=== PATIENT | male | born 1965 | race Caucasian/White ===

== ENCOUNTER 2025-06-25 15:05 | Inpatient (IN) | payer MEDICAID ==
[~2025-06-25] VITALS: Ht 185.4 cm; Wt 60.0 kg
[2025-06-25] VITALS (11 sets, daily range): BP systolic 85–132; BP diastolic 51–82; PULSE 58–76; RESP 10–17; TEMP 97.5–98; O2SAT 100
[2025-06-25 15:30] LABS: MEAN PLATELET VOLUME 8.5 FL (7.4-10.4); RED CELL DISTRIBUTION WIDTH 24.2 % (11.5-14.5)
[2025-06-25 15:42] LABS: INR 1.1 INR
[2025-06-25 15:55] LABS: CREATININE 0.92 MG/DL (0.60-1.10); TOTAL CARBON DIOXIDE 30.1 MMOL/L (24-32); eCRCL 74 ML/MIN; eGFR 84 ML/MIN
--- NOTE | 2025-06-25 16:23 | ELECTROCARDIOGRAPH REPORT ---
[facility] Test Date: 2025-06-25 Test Time: 15:10:45 Pat Name: JENA KEYES Department: EMERGENCY ROOM Room: Gender: M [employer] Technical Advisor: : [id number] Requested By: VALARIE SANCHEZ Order Number: [id number] Reading MD: Measurements Intervals [place] Rate: 74 P: 61 AR: 150 QRS: 42 QRSD: 90 T: 61 QT: 414 QTc: 460 Interpretive Statements Sinus rhythm RSR' in V1 or V2, right VCD or RVH Please click the below link to view image of tracing.
--- NOTE | 2025-06-25 16:47 | RADIOLOGY REPORT ---
CHEST RADIOGRAPH Indication: anemia Technique: DI CHEST,SINGLE VIEW Comparison: None FINDINGS: 1 The cardiac silhouette is unremarkable. The lungs demonstrate bilateral interstitial airspace opacities. The pulmonary vasculature is unremarkable. There is no pleural effusion. There is no pneumothorax. Aortic atherosclerotic disease. IMPRESSION: Interstitial airspace opacities which could represent sequela of pulmonary edema, atypical infection, chronic lung changes/disease.
[2025-06-25 16:55] LABS: PLATELET ESTIMATE NORMAL
[2025-06-25] MEDS ORDERED: iohexol 300mg/ml 100ml inj. ONE (16:57)
[2025-06-25] MEDS ORDERED: mag hydrox/Alum hydrox/simeth 30ml oral suspension PO PRN (17:40)
[2025-06-25] MEDS ORDERED: magnesium sulf-water 2g/50mL 50 ML IV PRN (17:40)
[2025-06-25] MEDS ORDERED: magnesium Cl slow-release 64mg tablet PO PRN (17:40)
[2025-06-25] MEDS ORDERED: potassium Cl 20 mEq SR tablet PO PRN ×2 (17:40)
[2025-06-25] MEDS ORDERED: HYDROcodone/acetaminophen 5mg/325mg tablet PO PRN (17:40)
[2025-06-25] MEDS ORDERED: acetaminophen 650mg rectal suppository RC PRN (17:40)
[2025-06-25] MEDS ORDERED: bisacodyl 10mg suppository rectal RC PRN (17:40)
[2025-06-25] MEDS ORDERED: potassium Cl 40MEQ/1/2NS 520ml 520 ML IV PRN (17:40)
[2025-06-25] MEDS ORDERED: magnesium sulf-water 4G/100mL 100 ML IV PRN (17:40)
[2025-06-25] MEDS ORDERED: HYDROcodone/acetaminophen 10/325mg tab PO PRN (17:40)
[2025-06-25] MEDS ORDERED: ondansetron 4mg rapidly disintigrating tab PO PRN (17:40)
[2025-06-25] MEDS ORDERED: magnesium hydroxide 30ml (MOM) UD suspension PO PRN (17:40)
[2025-06-25] MEDS ORDERED: ondansetron/PF 4mg/2ml inj IV PRN (17:40)
[2025-06-25] MEDS ORDERED: morphine 4 MG/ML inj SYRINge IV PRN (17:40)
--- NOTE | 2025-06-25 17:50 | HISTORY AND PHYSICAL ---
History & Physical Providers to CC ~ chief complaint, abnormal lab, low hemoglobin History of Present Illness Reason for Admit\Complaint: As above History of Present Illness This is a 60 years old white male with history of chronic tobacco abuse including currently, malnutrition BMI 17, presented today to emergency department sent by [facility], because abnormal lab hemoglobin 4.5, The patient denies any blood per rectum or vomiting blood and presented there for weakness and generalized malaise. Denies fever, N/V/D.in addition patient complaint on generalized weakness, intermittently confused, and hypoxic 2 L oxygen nasal cannula, in emergency department he was evaluated by physician was diagnosed with severe anemia, etiology unknown, a right-sided pneumonia, respiratory failure, malnutrition, and decision was made to admit patient for further evaluation and treatment, no additional complaint or concern. Allergies: Coded Allergies: No Known Allergies (Unverified , 10/06/16) Active prescriptions I reviewed reconciled Home Medications Pending Past Medical History Past Medical History As in HPI Past Surgical History Surgical History Comment As in HPI Past Social History Social History Comment Deny illicit drug abuse , alcohol use live with the family good social support, positive for chronic tobacco abuse including currently Health Maintenance Health Maintenance Noncontributory ROS ROS Constitutional : no fever , no chills, or weakness. No diaphoresis. Allergic/Immunologic, no lymphadenopathy, no hives, no skin eruptions. Eyes, no recent visual changes, no eye pain, no photophobia. Ears, nose, mouth, throat, no sore throat, no nosebleed, no ear pain. Cardiovascular, no palpitations, skipped beats, chest pain, no peripheral edema, Respiratory, no dyspnea, orthopnea, cough, hemoptysis, chest wall pain. Gastrointestinal, no abdominal pain, nausea, vomiting, constipation or diarrhea. : no dysuria, hematuria, pelvic pain, urethral d/c. Endocrine, no polyuria, polydipsia, recent unintentional weight gain or loss. Hematologic/Lymphatic, no petechiae, no enlarged lymph nodes, no bone pain. Integumentary, no rash, no skin lesions, Musculoskeletal, no muscle aches, or pain, no muscle cramps, no recent change in gait Neurological, no dizziness, no headache, no syncope, no paresthesia. Psychiatric, no delusions, visual hallucinations, or hearing hallucinations. ROS - in rest is as in HPI. Exam Vitals: Vital Signs Date Time Temp Pulse Resp B/P (MAP) Pulse Ox O2 Delivery O2 Flow Rate FiO2 06/25/25 17:11 97.8 67 14 104/58 06/25/25 15:29 100 2.0 Vital signs, stable ,afebrile. Pulse Oximetry reflects adequate oxygenation on 2 L oxygen nasal cannula. BMI is seventeen, weight 60 kg General: well developed, well nourished. Awake , alert, and oriented x4, resting comfortably in the bed, in no acute distress . Skin: Warm, dry, no pallor, no rash or petechiae. HEENT: Atraumatic, normocephalic, EOMI, anicteric sclera B; pink conjunctiva; PERRLA, normal oropharynx, moist oral and nasal mucosa. Tympanic membrane , nose , throat clear. Neck: Trachea midline. Supple, full range of motion, no JVD, bruit , hepatojugular reflex , lymphadenopathy or masses, or other lesions Cardiac: Regular rhythm, regular rate no murmurs, rubs, or gallops. Normal S1 and S2, no S3 noticed. PMI is normal. Respiratory: Equal breath sounds bilaterally, no tachypnea; lungs clear to auscultation bilaterally, no wheezing ,rub or rales, or crackles. Chest wall is symmetric and without deformity. No signs of trauma. Chest wall is nontender. No signs of respiratory distress. Resonance is normal upon percussion bilaterally. Gastrointestinal: Abdomen symmetric, non-distended, soft, non-tender, normal bowel sounds x4 quadrant, normoactive, no hepatosplenomegaly , no masses , no bruit, no flank pain bilaterally. No voluntary guarding, rebound, or rigidity. No tenderness to percussion. No pulsatile masses. Equal femoral pulses. No Nunn's sign or McBurney point tenderness. Back; no CVA tenderness bilaterally, no deformities. Neck and back are without deformity as well. No tenderness noted on palpation of the spinous processes. Spinous processes are midline. Cervical, thoracic, and lumbar paraspinal muscles are not tender and are without spasm. : normal external genitalia, without lesions, swelling, masses or tenderness. Musculoskeletal: Extremities, normal range of motion, non-tender, muscle strength 5/5 x 4. Negative Homans signs bilaterally on lower extremity. Distal pulses full symmetrical, no clubbing, cyanosis , edema. Neurological: Speech is clear, alert, and oriented x 4. No motor or sensory deficit, deep tendon reflexes normal, cerebellar intact. Cranial nerves II-XII intact. Psych: Alert and or appropriate, normal affect. Vascular: Good distal pulses, which are equal x4; capillary refill less than 2 seconds. Lymphatic, no lymphadenopathy. Diagnostic Data Last Recorded Lab Results: 06/25/25 1514 06/25/25 1514 Diagnostic Data: Laboratory Tests Test 06/25/25 15:14 Prothrombin Time 10.8 SECONDS (9.0-12.0) INR International Normalized Ratio 1.1 INR Coagulation Comments Advance Care Planning Advanced Care plannin - 30 Minutes Additional Plan Assessment Acute anemia, hemoglobin 4.5 Generalized weakness Chronic tobacco Abuse including currently Altered level of consciousness Right-sided pneumonia acute mixed yoshi Gram-positive Gram-negative, community- acquired Acute respiratory failure secondary to hypoxia Malnutrition BMI 17 Hypovolemia Hypoalbuminemia Plan Blood transfusion, initiated in ER IV fluids keep patient well hydrated euvolemic IV antibiotics, SVN DuoNeb incentive spirometry Additional lab work pending Nutrition consult CT of the chest pending CT of the head pending Consulted for 5 minutes to stop using tobacco patient agrees started to nicotine patch I reconciled home medications DVT gastropathy prophylaxis addressed Sepsis Screening Reassessment Date: Jun 25, 2025 Date of Service: Jun 25, 2025 Billing Provider: KAYLI REHMAN MD Common Visit Codes: [id number] INP/OBS CARE (HIGH) Secondary Visit Codes: [id number] CHNG SMOKING 3-10M, [id number] CARE PLAN 30 MINUTES KAYLI REHMAN MD Jun 25, 2025 17:49
[2025-06-25] MEDS: normal saline 1000ml 1,000 ML IV SCH (18:04)
[2025-06-25 18:10] LABS: PHOSPHORUS 4.7 MG/DL (2.3-4.5); PRO BRAIN NATRIURETIC PEPTIDE 1968 PG/ML (0-125)
--- NOTE | 2025-06-25 18:27 | Physician Documentation ---
History of Present Illness ~ Chief Complaint: Hypotension Stated Complaint: ABNORMAL LABS Time Seen by MD: 15:09 OK to notify your PCP?: Yes Mode of Arrival: EMS HPI 60 year old male sent from [facility] via EMS where he was diagnosed with a significant anemia. The patient denies any blood per rectum or vomiting blood and presented there for weakness and generalized malaise. Denies fever, N/V/D. Medication Reconciliation Allergies: Coded Allergies: No Known Allergies (Unverified , 10/06/16) Past Medical History Smoking Status: Unknown if ever smoked Review of Systems All Other Systems at this time: Reviewed and Negative Physical Exam Vital Signs: RN Vital Signs have been reviewed: Yes, Temperature: 97.8, Source: Oral, Heart Rate: 61, Respiratory Rate: 12, BP: 113/64, Pulse Oximetry: 100, Weight: 60.000 Oxygen Flow Rate: 2.0 Physical Exam HEENT: PERRL, moist oral mucosa, EOMI Pulmonary: No respiratory distress TAB Cardiac: RRR, no murmur, rub or gallop GI: nondistended, soft, nontender, no guarding, no rebound MSK: no deformity Skin: pale Neuro: alert, extremely hard of hearing Psych: normal affect Progress Results/Orders Results/Orders Orders - VALARIE SANCHEZ MD Cbc/Diff (06/25/25 15:09) Urinalysis, Cult If Indicated (06/25/25 15:09) Type And Screen (06/25/25 15:09) Lrpc - No Active Bleeding (06/25/25 15:09) Hemocult Set Up (06/25/25 ) Occult Bld Stool (06/25/25 15:58) Chest,Single View (06/25/25 16:20) Lrpc - Active Bleeding (06/25/25 15:14) Pathology Review (06/25/25 15:14) Page Hospitalist (06/25/25 ) Ct Chest Abdomen Pelvis Iv Con (06/25/25 16:52) Completed Orders - VALARIE SANCHEZ MD CMP (06/25/25 15:09) Lacticsepsis (06/25/25 15:09) Pt Inr (06/25/25 15:09) Chest,Single View (06/25/25 16:20) Electrocardiogram (06/25/25 15:10) Iohexol 300mg/Ml 100ml Inj. (Omnipaque-3 (06/25/25 16:57) Hgb A1c (06/25/25 15:14) MG (06/25/25 15:14) PBNP (06/25/25 15:14) PHOS (06/25/25 15:14) CK (06/25/25 15:14) Lipase (06/25/25 15:14) TSH (06/25/25 15:14) Medications Received in ER Medications (Trade) Dose Ordered Sig/Luis Alberto Route PRN Reason Start Time Stop Time Status Last Admin Dose Admin Sodium Chloride 1,000 ml @ 100 mls/hr Q10H IV 06/25/25 17:40 06/25/25 18:04 100 MLS/HR Vital Signs 06/25/25 06/25/25 06/25/25 06/25/25 15:08 15:16 15:22 15:29 Pulse 75 74 71 Resp 11 11 10 13 B/P (MAP) 89/50 96/54 (68) 93/56 (68) Pulse Ox 92 93 100 O2 Flow Rate 0 2.0 2.0 06/25/25 06/25/25 06/25/25 16:50 16:55 17:11 Temp 98.0 98.0 97.8 Pulse 70 69 67 Resp 13 13 14 B/P (MAP) 108/63 95/60 104/58 Laboratory Tests Test 06/25/25 15:14 White Blood Count 10.8 Red Blood Count 2.75 L Hemoglobin 4.5 *L Hematocrit 16.3 *L Mean Corpuscular Volume 59.2 L Mean Corpuscular Hemoglobin 16.4 L Mean Corpuscular Hemoglobin Concent 27.7 L Red Cell Distribution Width 24.2 H Platelet Count 405 Mean Platelet Volume 8.5 Neutrophils (%) (Auto) 80.5 H Lymphocytes (%) (Auto) 9.1 L Monocytes (%) (Auto) 7.3 Eosinophils (%) (Auto) 1.9 Basophils (%) (Auto) 1.2 H Neutrophils # (Auto) 8.7 H Lymphocytes # (Auto) 1.0 L Monocytes # (Auto) 0.8 Eosinophils # (Auto) 0.2 Basophils # (Auto) 0.1 CBC Comment Platelet Estimate Normal Red Blood Cell Morphology Perf Hypochromasia 2+ Basophilic Stippling Anisocytosis 3+ Microcytosis 3+ Tear Drop Cells Few Prothrombin Time 10.8 INR International Normalized Ratio 1.1 Coagulation Comments Sodium Level 139 Potassium Level 4.0 Chloride Level 104 Carbon Dioxide Level 30.1 Anion Gap 5 L Blood Urea Nitrogen 18 Creatinine 0.92 Estimated GFR/1.73 m2 84 BUN/Creatinine Ratio 19.6 Glucose Level 96 Hemoglobin A1c 4.9 Lactic Acid Level 1.3 Calcium Level 7.7 L Phosphorus Level 4.7 H Magnesium Level 2.0 Total Bilirubin 0.2 Aspartate Amino Transf (AST/SGOT) 11 Alanine Aminotransferase (ALT/SGPT) < 6 L Alkaline Phosphatase 147 H Total Creatine Kinase 9 L Pro-B-Type Natriuretic Peptide 1968 H Total Protein 6.1 L Albumin 2.3 L Globulin 3.8 Albumin/Globulin Ratio 0.6 L Lipase 19 Thyroid Stimulating Hormone (TSH) 2.13 Chemistry Comments Medical Decision Making Findings 60 year old male with severe anemia, confirmed on local testing with HgB <5. Typed and screened/crossed, transfusion started. Care transferred to hospitalist for continued workup. hemoccult pending. Differential Dx:Considerations: Include: anemia, dehydration, dysrhythmia, electrolyte imbalance, encephalopathy, hypotension, hypovolemia, myasathenia gravis, myocardial infarction, respiratory failure Departure Disposition: 09 ADMITTED INPATIENT Admitted to Inpatient Unit: to hospitalist Admission Level of Care: Med/Surg Impression: Primary Impression: Anemia Condition: Stable Referrals: NO PRIMARY CARE PROVIDER (PCP) Education Educated: Patient Educated regarding: diagnosis, treatment, prognosis, need for follow up Signature Scribe Signature: . Attestation: . VALARIE SANCHEZ MD Jun 25, 2025 18:27
[2025-06-25 19:45] LABS: LACTATE DEHYDROGENASE 165 U/L (85-227)
--- NOTE | 2025-06-25 19:52 | RADIOLOGY REPORT ---
EXAM: CT CT HEAD INDICATION: ALOC TECHNIQUE: CT images of the head were obtained without administration of IV contrast. CT scans at this facility use dose modulation, iterative reconstruction, and/or weight based dosing when appropriate to reduce radiation dose to as low as reasonably achievable. COMPARISON: None FINDINGS: PARENCHYMA: No acute hemorrhage. There is no mass effect, midline shift, or herniation. There is preservation of the nam white differentiation. VENTRICLES: No hydrocephalus. EXTRA-AXIAL SPACES: No extra-axial fluid collections. OTHER: The bony structures are intact. Fluid opacification of bilateral mastoid air cells correlate for mastoiditis. Degenerative change of bilateral temporomandibular joints. IMPRESSION: 1. No CT evidence of an acute intracranial abnormality. 2. Fluid opacification of bilateral mastoid air cells correlate for mastoiditis.
[2025-06-25] MEDS: docusate sod 100mg capsule PO SCH (20:00)
[2025-06-25] MEDS: K and/or MAG REPLACEMENT MC SCH (20:00)
--- NOTE | 2025-06-25 20:03 | RADIOLOGY REPORT ---
Exam: CT CT CHEST ABDOMEN PELVIS IV CON History: anemia LUNG OPACITIES Comparison Study: None Technique: Multidetector spiral CT of the chest, abdomen and pelvis was performed from lower neck to pubic symphysis. Intravenous contrast was administered during this examination. Portal venous imaging was obtained. Axial, coronal and sagittal multiplanar reformats were performed by the technologist on a separate workstation. Radiation Dose : 1. Chest/Abdomen/Pelvis: CTDIvol 14.7 mGy, DLP 1175 mGy*cm. Findings: Lower neck: Normal thyroid. Lungs: Multifocal nodular densities throughout both lungs suggestive of multifocal pneumonia. Heart/Vascular Structures: Normal heart size. No pericardial effusion. Lymph Nodes: No adenopathy Pleura: No pleural effusion or significant pneumothorax. Liver: Hepatomegaly measuring up to 21 cm. Diffuse steatosis. Gallbladder and Biliary Tree: Cholelithiasis noted without secondary findings of cholecystitis or biliary obstruction. Spleen: Unremarkable Pancreas: The pancreas is normal in appearance without focal lesions or abnormal enhancement. Adrenal Glands: Unremarkable Kidneys: Kidneys demonstrate normal symmetric enhancement without focal lesions, calculi or hydronephrosis. Bladder: Unremarkable Bowel: The stomach is grossly normal in appearance. Scattered colonic diverticula. Mild concentric wall thickening of the distal colon may reflect underdistention versus mild colitis. The appendix is not visualized; however, no secondary findings of acute appendicitis identified. Ascites: Absent Lymphadenopathy: No mesenteric, retroperitoneal or periportal lymphadenopathy. Abdominal Wall and Mesentery: Unremarkable. Vasculature: The visualized abdominal aorta is normal in size and caliber. Abdominal and pelvic vessels demonstrate normal enhancement. Pelvic Organs: Unremarkable Musculoskeletal: No aggressive focal bony lesions, acute fractures or dislocation. Posterior surgical fixation hardware at L5-S1. IMPRESSION: 1. Multifocal nodular densities throughout both lungs suggestive of multifocal pneumonia. Recommend follow-up noncontrast chest CT in 2-4 weeks to evaluate for stability. 2. Hepatomegaly with diffuse steatosis. 3. Cholelithiasis without secondary findings of cholecystitis or biliary obstruction. 4. Scattered colonic diverticula. 5. Mild concentric wall thickening of the distal colon may reflect underdistention versus mild colitis.
[2025-06-25 21:12] LABS: HIV ANTIBODY 1&2 RAPID NON-REACTIVE (Neg)
[2025-06-25] MEDS ORDERED: ALBU18HF2 IH (22:10)
[2025-06-25] MEDS ORDERED: HYDR-3972 PO (22:10)
[2025-06-25] MEDS ORDERED: OMEP20TA23 PO (22:10)
[2025-06-25] MEDS ORDERED: MORP30TA6 PO (22:10)
[2025-06-25] MEDS ORDERED: LORA10TA7 PO (22:10)
[2025-06-25] MEDS ORDERED: MONT-47 PO (22:11)
[2025-06-25] MEDS ORDERED: UMEC1BLS IH (22:13)
[2025-06-25 22:53] LABS: LEUKOCYTE ESTERASE ,URINE NEGATIVE (Neg); NITRITES, URINE NEGATIVE (Neg); OCCULT BLOOD,URINE NEGATIVE (Neg); UA COLLECTION TYPE URINAL
[2025-06-25 23:00] LABS: URINE AMPHETAMINE SCREEN NEGATIVE (Neg); URINE BARBITUATE SCREEN NEGATIVE (Neg); URINE BENZODIAZEPINES SCREEN NEGATIVE (Neg); URINE CANNABINOID SCREEN POSITIVE (Neg); URINE COCAINE SCREEN NEGATIVE (Neg); URINE METHADONE SCREEN NEGATIVE (Neg); URINE OPIATE SCREEN POSITIVE (Neg); URINE PHENCYCLIDINE SCREEN NEGATIVE (Neg)
[2025-06-26] VITALS (9 sets, daily range): BP systolic 93–103; BP diastolic 45–52; PULSE 62–94; RESP 12–20; TEMP 97.2–98.1; O2SAT 88–100
[2025-06-26 00:26] LABS: MEAN PLATELET VOLUME 8.6 FL (7.4-10.4); RED CELL DISTRIBUTION WIDTH 30.2 % (11.5-14.5)
[2025-06-26] MEDS: nicotine 14mg patch - 24hr TD SCH (08:00)
[2025-06-26] MEDS ORDERED: pantoprazole 40MG/NS 100ML BAG 100 ML IV SCH (08:00)
[2025-06-26 09:28] LABS: MEAN PLATELET VOLUME 8.3 FL (7.4-10.4); RED CELL DISTRIBUTION WIDTH 29.6 % (11.5-14.5)
[2025-06-26 09:34] LABS: PLATELET ESTIMATE NORMAL
[2025-06-26 09:46] LABS: ELLIPTOCYTES FEW
[2025-06-26 09:50] LABS: CREATININE 0.65 MG/DL (0.60-1.10); TOTAL CARBON DIOXIDE 29.7 MMOL/L (24-32); eCRCL 105 ML/MIN; eGFR > 90 ML/MIN
[2025-06-26 09:51] LABS: CHOL/HDL RATIO 3.1 (0.00-4.99); LDL CHOLESTEROL 64 MG/DL (50-100)
[2025-06-26] MEDS: CefTRIAXone/D5W-Rocephin 1gm 50 ML IV SCH (10:31)
[2025-06-26] MEDS: azithromycin/NS 500mg/250ml 250 ML IV SCH (10:31)
[2025-06-26] MEDS: ipratropium/albuterol 3ml nebule NEB PRN (10:35)
--- NOTE | 2025-06-26 18:54 | PROGRESS NOTE ---
Daily Progress Note Providers to CC ~ feels better today, resting comfortably in the bed Central Line/PICC still needed: No Rivas-Non Protocol Rivas Indications Met/Not Met: F/C Indications Not Met Antibiotic Timeout Antibiotic Ordered?: Yes MRSA Education MRSA Education Provided to pt: Yes Subjective As above Objective Vital Signs Date Time Temp Pulse Resp B/P (MAP) Pulse Ox O2 Delivery O2 Flow Rate FiO2 06/26/25 10:43 68 20 Nasal Cannula 1.0 06/26/25 10:35 88 21 06/26/25 08:35 97.8 109/54 (72) Vital signs, stable ,afebrile. Pulse Oximetry reflects adequate oxygenation on 1 L oxygen nasal cannula General: well developed, well nourished. Awake , alert, and oriented x4, resting comfortably in the bed, in no acute distress . Skin: Warm, dry, no pallor, no rash or petechiae. HEENT: Atraumatic, normocephalic, EOMI, anicteric sclera B; pink conjunctiva; PERRLA, normal oropharynx, moist oral and nasal mucosa. Tympanic membrane , nose , throat clear. Neck: Trachea midline. Supple, full range of motion, no JVD, bruit , hepatojugular reflex , lymphadenopathy or masses, or other lesions Cardiac: Regular rhythm, regular rate no murmurs, rubs, or gallops. Normal S1 and S2, no S3 noticed. PMI is normal. Respiratory: Equal breath sounds bilaterally, no tachypnea; lungs clear to auscultation bilaterally, no wheezing ,rub or rales, or crackles. Chest wall is symmetric and without deformity. No signs of trauma. Chest wall is nontender. No signs of respiratory distress. Resonance is normal upon percussion bilaterally. Gastrointestinal: Abdomen symmetric, non-distended, soft, non-tender, normal bowel sounds x4 quadrant, normoactive, no hepatosplenomegaly , no masses , no bruit, no flank pain bilaterally. No voluntary guarding, rebound, or rigidity. No tenderness to percussion. No pulsatile masses. Equal femoral pulses. No Nunn's sign or McBurney point tenderness. Back; no CVA tenderness bilaterally, no deformities. Neck and back are without deformity as well. No tenderness noted on palpation of the spinous processes. Spinous processes are midline. Cervical, thoracic, and lumbar paraspinal muscles are not tender and are without spasm. : normal external genitalia, without lesions, swelling, masses or tenderness. Musculoskeletal: Extremities, normal range of motion, non-tender, muscle strength 5/5 x 4. Negative Homans signs bilaterally on lower extremity. Distal pulses full symmetrical, no clubbing, cyanosis , edema. Neurological: Speech is clear, alert, and oriented x 4. No motor or sensory deficit, deep tendon reflexes normal, cerebellar intact. Cranial nerves II-XII intact. Psych: Alert and or appropriate, normal affect. Vascular: Good distal pulses, which are equal x4; capillary refill less than 2 seconds. Lymphatic, no lymphadenopathy. Result Diagram: 06/26/2590506/26/25905 Coagulation Studies Laboratory Tests Test 06/25/25 15:14 Prothrombin Time 10.8 SECONDS (9.0-12.0) INR International Normalized Ratio 1.1 INR Coagulation Comments Problem\Assessment\Plan Assessment Acute anemia, hemoglobin 4.5 Hepatic steatosis Diverticulosis Chronic cholelithiasis Generalized weakness Chronic tobacco Abuse including currently Altered level of consciousness Bilateral multifocal pneumonia acute mixed yoshi Gram-positive Gram-negative, community-acquired Acute respiratory failure secondary to hypoxia Malnutrition BMI 17 Hypovolemia Hypoalbuminemia Plan Blood transfusion, initiated in ER IV fluids keep patient well hydrated euvolemic IV antibiotics, SVN DuoNeb incentive spirometry Additional lab work pending Nutrition consult CT of the chest , abdomen pelvis, completed CT of the head completed IV Protonix GI doctor consult pending Consulted for 5 minutes to stop using tobacco patient agrees started to nicotine patch I reconciled home medications DVT gastropathy prophylaxis addressed Sepsis Screening Reassessment Date: Jun 26, 2025 Date of Service: Jun 26, 2025 Billing Provider: KAYLI REHMAN MD Common Visit Codes: [id number] INP/OBS CARE(HIGH) KAYLI REHMAN MD Jun 26, 2025 18:54
[2025-06-27 02:00] VITALS: BP 110/65; PULSE 66; RESP 20; TEMP 97.8; O2SAT 100
[2025-06-27 07:33] LABS: MEAN PLATELET VOLUME 8.5 FL (7.4-10.4); RED CELL DISTRIBUTION WIDTH 31.5 % (11.5-14.5)
[2025-06-27 07:52] LABS: CREATININE 0.59 MG/DL (0.60-1.10); TOTAL CARBON DIOXIDE 27.8 MMOL/L (24-32); eCRCL 116 ML/MIN; eGFR > 90 ML/MIN
[2025-06-27 08:04] LABS: PLATELET ESTIMATE NORMAL
[2025-06-27 08:05] LABS: ELLIPTOCYTES 1+
[2025-06-27 08:55] VITALS: BP 122/68; PULSE 65; RESP 15; O2SAT 97
--- NOTE | 2025-06-27 12:03 | CONSULTATION REPORT - RESIDENT ---
Consult Providers to CC Resident Creating Document: JAISON HIGGINS RES History of Present Illness Reason for Admit\Complaint: Reason for GI consult: Severe anemia. History of Present Illness 60 years old male patient came to the hospital sent by [facility] because the patient was found with hemoglobin levels of 4.5. Upon admission the patient denied any signs of bleeding per rectum, hematemesis, melena. The patient did mentioned generalized weakness and fatigue. He also denied fever, was intermittently confused and hypoxic using 2 L oxygen of nasal cannula. The patient was initially admitted with severe anemia without known etiology, we were consulted due to the probability of gastrointestinal bleeding, plan for EGD in order to ruled out upper gastrointestinal bleeding was thought. Further discussion with the patient, explanation of the procedure was done, risks and benefits was explained, the patient decided not to undergo EGD. Allergies: Coded Allergies: No Known Allergies (Unverified , 10/06/16) Home Medications Home Medications Active Reported Umeclidinium-Vilantero 62.5-25 (Umeclidinium Brm/Vilanterol Tr) 62.5 Mcg-25 Mcg/Actuation Blst.w.dev 1 Puffs IH DAILY Singulair (Montelukast Sodium) 10 Mg Tablet 1 Tab PO HS Prilosec Otc (Omeprazole Magnesium) 20 Mg Tablet.dr 20 Mg PO Oramorph Sr (Morphine Sulfate) 30 Mg Tablet.sa 2 Tab PO Q12H Loratadine 10 Mg Tablet 1 Tab PO DAILY Ventolin Hfa (Albuterol Sulfate) 90 Mcg Hfa.aer.ad 1 Puff IH Q4H PRN Hydrocodon-Acetaminophn 10-325 tablet (Acetaminophen/Hydrocodone Bitart) 10mg- 325mg Tablet 1.5 Tablet PO Q6H PRN MDD 6 tabs Past Medical History Past Medical History Malnutrition. Chronic tobacco abuse. Past Surgical History Surgical History Comment No surgeries reported. Exam Vitals: Vital Signs Date Time Temp Pulse Resp B/P (MAP) Pulse Ox O2 Delivery O2 Flow Rate FiO2 06/27/25 08:55 97.9 65 15 97 06/27/25 02:00 110/65 (80) Room Air 06/26/25 20:42 0 21 Physical exam: General: Awake, alert, oriented. No acute distress. Well-developed, hydrated and well-built nourished. No anemia, Jaundice or clubbing. HEENT: Conjunctive are pink, sclerae clear, no icterus, pupil is equal in both sides, reactive to light, no ear discharge, no pharyngeal erythema or an edema. Neck: Supple, no adenopathy, thyromegaly. Trachea is midline. No JVD. Chest: Respiratory: Vesicular breath sounds. No ronchi, crepitus or wheezing. Resonance is normal upon percussion of all lung schumacher. Cardiovascular: S1-S2 regular sinus rhythm and, regular rate, no gallops, no rubs, no murmurs Abdomen: No visible distention, Bowel sounds present on auscultation, on palpation: soft, nontender, no guarding, no rigidity. Extremities: No obvious deformities, no pitting edema bilaterally, capillary refill intact, peripheral pulsations are intact on both sides Neurologic: Mental status: alert and conscious, oriented to place, person and time, preserved memory, normal speech. Cranial nerves I-XII: Normal. Motor system: Preserved power, coordination, no evidenced involuntary movements, strength 5/5 in four extremities. Sensory system: Preserved temperature, pain and vibration sensation. 2+ deep tendon reflexes in biceps, triceps, quadriceps. Negative Babinski. Cerebellar: No nystagmus, dysdiadochokinesia, normal [id number] testing. Skin: Warm and dry. Diagnostic Data Last Recorded Lab Results: 06/27/2562406/27/25 06 Diagnostic Data: Laboratory Tests Test 06/25/25 15:14 Prothrombin Time 10.8 SECONDS (9.0-12.0) INR International Normalized Ratio 1.1 INR Coagulation Comments Additional Plan Assessment and plan: 60 years old male patient came to the hospital sent from [facility] due to severe anemia found in lab work. Suspicion for upper GI bleeding: Peptic ulcer disease is the most likely cause, the because is the most common condition causing upper GI bleed. A: The patient presented with severe anemia of 4.5. We were consulted for possible EGD due to the concern of upper gastrointestinal bleeding. CT chest abdomen/pelvis with IV contrast: Multifocal nodular densities throughout both lungs suggestive of multifocal pneumonia. Recommend follow-up noncontrast chest CT in 2-4 weeks to evaluate for stability. Hepatomegaly with diffuse steatosis. Cholelithiasis without secondary findings of cholecystitis or biliary obstruction. Scattered colonic diverticula. Mild concentric wall thickening of the distal colon may reflect underestimation versus mild colitis. Plan: Avoid NSAIDs. Further discussion with the patient, explanation of the procedure was done, risks and benefits was explained, the patient decided not to undergo EGD. Protonix 40 mg daily. Monitor hemoglobin and hematocrit. Monitor bleeding. Continue regular diet. Other comorbidities: Diverticulosis. Chronic cholelithiasis. Chronic tobacco abuse. Community-acquired pneumonia. Hypovolemia. Hypovolemia. Continue management as per primary team. Code status: Full code DVT prophylaxis: SCDs Analgesia/sedation: Russell Line/tube: PIV GI prophylaxis: Protonix Nutrition: Regular diet PT: Yes Prognosis: Guarded Jaison Mae Internal Medicine Resident [facility] Date of Service: Jun 27, 2025 Billing Provider: FAUSTINO CORONA MD,JAISON RUANO, RES Jun 27, 2025 12:03
--- NOTE | 2025-06-27 19:00 | DISCHARGE SUMMARY ---
Discharge Summary Providers to Patient eloped from his department ~ Discharge Summary Assessment Acute anemia, hemoglobin 4.5 Generalized weakness Chronic tobacco Abuse including currently Altered level of consciousness Right-sided pneumonia acute mixed yoshi Gram-positive Gram-negative, community- acquired Acute respiratory failure secondary to hypoxia Malnutrition BMI 17 Hypovolemia Hypoalbuminemia Admission Diagnosis: Anemia; R PNA Admission Diagnosis Comment: Acute anemia, hemoglobin 4.5 Generalized weakness Chronic tobacco Abuse including currently Altered level of consciousness Right-sided pneumonia acute mixed yoshi Gram-positive Gram-negative, community- acquired Acute respiratory failure secondary to hypoxia Malnutrition BMI 17 Hypovolemia Hypoalbuminemia Hospital Course DATE OF ADMISSION: June 25, 2025 DATE OF DISCHARGE: June 27, 2025 Discharge Diagnosis\Comment: Acute anemia, hemoglobin 4.5 Generalized weakness Chronic tobacco Abuse including currently Altered level of consciousness Right-sided pneumonia acute mixed yoshi Gram-positive Gram-negative, community- acquired Acute respiratory failure secondary to hypoxia Malnutrition BMI 17 Hypovolemia Hypoalbuminemia Operations\Procedures: EGD patient refused Consultants: GI doctor Complications: Non Condition on DC: Stable Discharge Summary: This is a 60 years old white male with history of chronic tobacco abuse including currently, malnutrition BMI 17, presented today to emergency department sent by [facility], because abnormal lab hemoglobin 4.5, The patient denies any blood per rectum or vomiting blood and presented there for weakness and generalized malaise. Denies fever, N/V/D.in addition patient complaint on generalized weakness, intermittently confused, and hypoxic 2 L oxygen nasal cannula, in emergency department he was evaluated by physician was diagnosed with severe anemia, etiology unknown, a right-sided pneumonia, respiratory failure, malnutrition, and decision was made to admit patient for further evaluation and treatment, no additional complaint or concern. Patient was transfused blood feels better today refused EGD, and eloped from emergency department, I was unable to do physical exam since patient eloped. *Problems/Diagnosis: (1) Anemia Status: Acute Total Time Spent on D/C: > 30 Minutes Date of Service: Jun 27, 2025 Billing Provider: KAYLI REHMAN MD Common Visit Codes: 19790-DLL/OBS DISCH DAY >30min Problem Qualifiers (1) Anemia: KAYLI REHMAN MD Jun 27, 2025 19:00
== END 2025-06-27 11:25 | disposition left against medical advice (07) | DRG 663 ==
LOC: ER 15:05 → ED HOLD 17:42 → EDBEDREQTM 18:28 → PCU 3S 06-26 10:05
PROVIDERS: ADMIT Family Medicine; ATTEND Family Medicine
PROC: BW251ZZ Computerized Tomography (CT Scan) of Chest, Abdomen and Pelvis using Low Osmolar Contrast (ICD-10-PCS; principal; 2025-06-25)
PROC: 30233N1 Transfusion of Nonautologous Red Blood Cells into Peripheral Vein, Percutaneous Approach (ICD-10-PCS; 2025-06-25)
DX: D64.9 Anemia, unspecified (principal); J96.01 Acute respiratory failure with hypoxia; J15.69 Pneumonia due to other Gram-negative bacteria; J15.9 Unspecified bacterial pneumonia; E46 Unspecified protein-calorie malnutrition; E88.09 Other disorders of plasma-protein metabolism, not elsewhere classified; Z20.822 Contact with and (suspected) exposure to COVID-19; E78.5 Hyperlipidemia, unspecified; E86.1 Hypovolemia; Z68.1 Body mass index [BMI] 19.9 or less, adult; K57.30 Diverticulosis of large intestine without perforation or abscess without bleeding; K76.0 Fatty (change of) liver, not elsewhere classified; K80.20 Calculus of gallbladder without cholecystitis without obstruction; Z72.0 Tobacco use
CPT/HCPCS: 36415; 36430; 70450; 71045; 71260; 74177; 80053; 80061; 80305; 81003; 82550; 83036; 83605; 83615; 83690; 83735; 83880; 84100; 84443; 84484; 85008; 85025; 85027; 85610; 86703; 86885; 86900; 86901; 86920; 87081; 87811; 93005; 94640; 94760; 96360; 99285; A4615; G0378; J0456; J0696; J2470; J7030; J7040; J7120; P9016; Q9967